=== PATIENT | female | born 1970 | race Caucasian/White ===

== ENCOUNTER 2016-12-23 04:21 | Emergency (ER) | payer BC ==
--- NOTE | 2016-12-23 07:02 | ER ---
ADMIT: 12/23/2016 RM/LOC: ER [facility] MR#: [id number] [id number] FADUMO RODRIGUEZ [address] [place] [address] Emergency Room Report SEX: F AGE: 46 : 1970 DATE: 12/23/2016 The patient is a 46-year-old female, complaining of 2-day history of stuttering left lower quadrant pain, associated with urgency. Denies any fevers, chills, nausea, or vomiting. Does have some dysuria, but no hematuria or history of renal colic, diverticulitis or irritable bowel syndrome. Exam remarkable for nontoxic, afebrile, comfortable-appearing female. After given IV fluids, Zofran, Toradol, Dilaudid. Patient was tearful on arrival. Abdomen otherwise benign. CT abdomen and pelvis negative except for increased stool. No thickened bowel wall or renal obstruction. Normal CBC, CMP, lipase, CRP, and UA. Recommended a high-soluble fiber diet. Follow up Dr. Cleary for possible colonoscopy or Cologuard. Raymond Davidson MD/ abhi JOB #: [id number] CC: Raymond Davidson MD, Attending Physician Isaiah Cleary MD, Family Physician Isaiah Cleary MD
== END 2016-12-23 06:00 | disposition home or self-care (01) ==
LOC: ER 04:21
DX: K58.1 Irritable bowel syndrome with constipation (principal); Z88.5 Allergy status to narcotic agent